=== PATIENT | male | born 1995 | race African-American/Black ===

== ENCOUNTER 2025-07-13 16:52 | Emergency (ER) | payer OTHER ==
[~2025-07-13] VITALS: Ht 175.3 cm; Wt 90.0 kg
[2025-07-13 17:01] VITALS: O2SAT 99
[2025-07-13] MEDS: BACITRACIN ZINC OINT UDPKT TOP ONE (17:30)
[2025-07-13] MEDS ORDERED: TETANUS AND DIPHTHERIA TOX/PF 0.5ML SYR (ADULT) IM ONE (17:30)
[2025-07-13] MEDS: MORPHINE SULFATE 2 MG/ML INJ (NOT FOR IM USE) IV ONE (18:06)
[2025-07-13] MEDS: TETANUS, DIPHTHERIA, PERTUSSIS VAC/PF 0.5ML (>10YR OLD) IM ONE (18:15)
[2025-07-13] MEDS: SODIUM CHLORIDE 0.9% 1,000 ML IV ONE (19:24)
[2025-07-13 21:25] VITALS: BP 154/93; PULSE 90; RESP 16; TEMP 37.1; O2SAT 95
== END 2025-07-13 21:45 | disposition short-term general hospital (02) ==
LOC: ER 16:52
DX: T23.001A Burn of unspecified degree of right hand, unspecified site, initial encounter (principal); T22.00XA Burn of unspecified degree of shoulder and upper limb, except wrist and hand, unspecified site, initial encounter; X58.XXXA Exposure to other specified factors, initial encounter; Y93.89 Activity, other specified; Y92.89 Other specified places as the place of occurrence of the external cause; Y99.8 Other external cause status
CPT/HCPCS: 99291; 96374; 96361; 90715; 16000; 90471; J2270; J7030; 90714